=== PATIENT | male | born 1980 | race Caucasian/White ===

== ENCOUNTER 2022-08-09 13:03 | Emergency (ER) | payer OTHER, SELFPAY ==
[2022-08-09 13:16] VITALS: BP 150/91; PULSE 93; RESP 20; TEMP 36.5; O2SAT 100
--- NOTE | 2022-08-09 13:44 | ED.GENADULT ---
HPI - General Adult General Chief complaint: Environmental Exposure Stated complaint: vomiting/weakness Time Seen by Provider: 08/09/22 13:44 Source: patient Mode of arrival: ambulatory Limitations: no limitations History of Present Illness HPI narrative: 42-year-old male presented for evaluation after dried wall fell onto him while at work. Endorses possible mold, dust, and dry wall struck the top of his head, face, and skin. He also endorses inhaling some of these particles. Endorses scalp and skin was burning at the time, and endorses 2 episodes of emesis following the incident. The patient rinsed off his skin and reports feeling much better. He currently denies shortness of breath, wheezing, nausea, vomiting, dizziness or hemoptysis. Related Data Allergies Allergy/AdvReac Type Severity Reaction Status Date / Time No Known Allergies Allergy Verified 08/09/22 13:24 Review of Systems Review of Systems: CONSTITUTIONAL: Denies body aches, fever, chills, or sweats. EYES: Denies visual changes, redness, or discharge. ENT: Denies rhinorrhea, congestion, or otalgia. CARDIOVASCULAR: Denies chest pain, palpitations, or edema. RESPIRATORY: Denies cough or dyspnea. GASTROINTESTINAL: Denies abdominal pain, or diarrhea. GENITOURINARY: Denies dysuria or hematuria. SKIN: Denies rash, itching, or wounds. MUSCULOSKELETAL: Denies back pain, joint pain, or myalgia. NEUROLOGIC: Denies headache, numbness, tingling, or weakness. All systems reviewed & are unremarkable except as noted in HPI and below PMFSH Comments At time of signature, I have reviewed and agree with nursing past medical, surgical, social and family history unless otherwise noted. Please see nursing chart for further information. There is no relevant family history pertinent to the presenting complaint Exam Narrative: GENERAL: Well-appearing HEAD: Normocephalic, atraumatic. EYES: EOMI. No redness or drainage. Conjunctivae normal. ENT: Mucous membranes pink and moist. No rhinorrhea. TMs normal bilaterally. Throat normal. Uvula midline. NECK: Normal AROM. Supple. No lymphadenopathy. CHEST: No respiratory distress. Clear to auscultation. HEART: Regular rate and rhythm. No murmur appreciated. Normal peripheral pulses. ABDOMEN: Soft, nontender, nondistended, normal active bowel sounds. SKIN: Warm, dry, no rash. Capillary refill normal. Normal skin turgor. NEURO: No focal deficits. Alert and oriented x3. Gait steady. PSYCH: Normal affect. Course Course Emergency Course: Patient is aware of diagnosis, understands and agrees to treatment plan. Anticipatory guidance given. Patient agrees to follow-up as directed and is aware of reasons to seek care at the emergency department. Portions of this record may have been created with voice recognition software Level of Care: Express Care Visit Vital Signs Vital signs: Vital Signs Temperature 97.7 F 08/09/22 13:16 Pulse Rate 93 08/09/22 13:16 Respiratory Rate 20 08/09/22 13:16 Blood Pressure 150/91 H 08/09/22 13:16 Pulse Oximetry 100 08/09/22 13:16 Oxygen Delivery Room Air 08/09/22 13:16 Temperature 97.7 F 08/09/22 13:16 Pulse Rate 93 08/09/22 13:16 Respiratory Rate 20 08/09/22 13:16 Blood Pressure 150/91 H 08/09/22 13:16 Pulse Oximetry 100 08/09/22 13:16 Oxygen Delivery Room Air 08/09/22 13:16 Medical Decision Making MDM Narrative Medical decision making narrative: Patient reports significant improvement since symptoms started. He will continue to monitor and go to the emergency Roomfor any worsening symptoms or concerns. Advised supportive measures and signs/symptoms to go to the ER. Pt is appropriate for outpt treatment and f/u. Differential Diagnosis Differential Diagnosis: chemical exposure, inhalation of debris, congestion, bronchitis, pharyngitis Vital Signs Vital Signs: Vital Signs Temperature 97.7 F 08/09/22 13:16 Pulse Rate 93 08/09/22 13
== END 2022-08-09 14:09 | disposition home or self-care (01) ==
PROVIDERS: Emergency Provider Nurse Practitioner Family
DX: Z57.2 Occupational exposure to dust (principal)
CPT/HCPCS: 99213; G0463